=== PATIENT | female | born 1945 | race Caucasian/White ===

== ENCOUNTER 2021-02-02 16:02 | Outpatient (REF) | payer MEDICARE, SELFPAY ==
[2021-03-04 08:55] LABS: Fungus Smear No Fungi Seen
== END 2021-02-02 16:03 | disposition home or self-care (01) ==
LOC: NCHCN 16:02
PROVIDERS: PCP Nurse Practitioner Family; Visit Provider Nurse Practitioner Family
DX: S60.945D Unspecified superficial injury of left ring finger, subsequent encounter; L98.9 Disorder of the skin and subcutaneous tissue, unspecified
CPT/HCPCS: 87101; 87206

== ENCOUNTER 2021-08-18 11:44 | Outpatient (CLI) | payer MEDICARE, OTHER, SELFPAY ==
--- NOTE | 2021-08-18 10:30 | DI.RAD_ITS ---
Exam(s) XR FINGER LT RING EXAM: XR FINGER LT RING CLINICAL HISTORY: LEFT RING FINGER CYST TECHNIQUE: COMPARISON: No exams were available for comparison FINDINGS: Two views were obtained. There is severe loss of the cartilaginous joint spaces of the PIP and DIP P joints. There are very prominent marginal osteophytes at each of these sites. The findings are mor e severe at the PIP joint. No additional significant bony findings. Note is made soft tissue nodula r swelling over the dorsum the DIP joint IMPRESSION: RADIATION DOSE DELIVERED: Total DLP
== END 2021-08-18 11:45 | disposition home or self-care (01) ==
LOC: DIORS 11:44
PROVIDERS: PCP Nurse Practitioner Family; Referring Provider Family Medicine; Visit Provider Physician Assistant
DX: M67.442 Ganglion, left hand
CPT/HCPCS: 20610; 99202; 73140

== ENCOUNTER → 2021-11-16 08:51 | Outpatient (BNVA) | payer MEDICARE, OTHER, SELFPAY | PROVIDERS: PCP Nurse Practitioner Family; Referring Provider Nurse Practitioner Family; Visit Provider Student in an Organized Health Care Education/Training Program | DX: M67.442 Ganglion, left hand (principal) | CPT/HCPCS: 99212 ==

== ENCOUNTER 2021-12-14 02:41 | Outpatient (CLI) | payer MEDICARE, OTHER, SELFPAY ==
[2021-12-14 11:27] LABS: Source Nasal/Nares
[2021-12-14 16:14] LABS: COVID-19 PCR Negative (Negative)
== END 2021-12-14 02:42 | disposition home or self-care (01) ==
LOC: LBO 02:41
PROVIDERS: PCP Nurse Practitioner Family; Visit Provider Student in an Organized Health Care Education/Training Program
DX: Z20.822 Contact with and (suspected) exposure to COVID-19 (principal); Z01.818 Encounter for other preprocedural examination
CPT/HCPCS: 87635; U0005

== ENCOUNTER 2021-12-15 10:51 | Day surgery (SDC) | payer MEDICARE, OTHER, SELFPAY ==
[2021-12-15 11:10] VITALS: BP 157/95; PULSE 72; RESP 16; TEMP 36.5; O2SAT 97
[2021-12-15] MEDS: Sodium Bicarbonate 50 MEQ/50 ML VIAL (12:45)
[2021-12-15] MEDS: Lidocaine 1% Multi-Dose 50 ML VIAL (12:46)
[2021-12-15 12:55] VITALS: BP 170/92; PULSE 69; RESP 18; TEMP 36.5; O2SAT 99
--- NOTE | 2021-12-15 16:39 | W.PM.OP ---
Date of service: 12/15/21 Time of Service: 13:00 Operative Note Operative Note DATE OF PROCEDURE: 12/15/21 PRE-OP DIAGNOSIS: Left Ring Finger Mucous Cyst POST-OP DIAGNOSIS: same PROCEDURE: Mucous Cyst Excision - Left Ring Finger SURGEON: Goran Tamayo ANESTHESIA TYPE: Local By Surgeon Refer to Anesthesia Record ESTIMATED BLOOD LOSS: 5 PATHOLOGY: none sent COMPLICATIONS: None Patient was transported to: same day Patient's condition: stable Indications: I have seen Samreen in clinic for symptoms of a digital mucous cyst. The mass persisted and caused pain to direct contact and with use. The diagnosis of a mucous cyst was made. The symptoms had not responded to conservative measures. I discussed cyst excision with the patient. I reviewed the risks of the procedure to include, but not limited to, bleeding, infection, pain, stiffness, recurrence, damage to nerves or vessels. Despite these risks, the patient elected to proceed. Findings: There was a cyst of the distal phalanx, arising from the DIP joint. The cyst and its capsule was removed and an arthrotomy at the cyst location performed with removal of bony osteophyte prominence. Procedure Description: Samreen was greeted in the preoperative holding area where the correct side was identified and marked. The consent was reviewed with the patient and signed. All questions were answered. She was taken back to the operating room. The patient was placed into the supine position on the operating room table with the left arm on an arm board. All bony prominences were well padded. No prophylactic antibiotics were administered since this was a clean, elective hand surgical case. The left arm was then prepped with Chloraprep and draped in a standard fashion with stockinette and extremity drape. A timeout to confirm correct identity, side and site, procedure, allergies, anesthesia, and medical concerns was performed. A digital block was then performed using 2% lidocaine buffered with sodium bicarbonate. This was allowed time to set up completely and was tested before proceeding with the case. A longitudinal incision was then made overlying the cyst. The skin was incised sharply. Full-thickness flaps were then elevated to expose the cyst. Unfortunately, the skin was so thin that the cyst was penetrated on initial incision. The cyst capsule was then removed with a rongeur and followed back towards the DIP joint. Using the rongeur and a [place] I was able to penetrate into the DIP joint creating a small arthrotomy from the origin of the mucous cyst. The finger was irrigated and once again checked to make sure that all components of the cyst were removed. A small osteohpytic prominence was also removed with the rongeur. The skin was then closed using #4-0 nylon in interrupted fashion. The finger was dressed with Xeroform, 4 x 4, conformer dressing. The patient tolerated the procedure well and was returned to the Same Day Surgery area in a stable condition suffering no known complication.
== END 2021-12-15 13:45 | disposition home or self-care (01) ==
PROVIDERS: PCP Family Medicine; Visit Provider Student in an Organized Health Care Education/Training Program
PROC: (CPT 26160; principal; 2021-12-15 12:30)
DX: M67.442 Ganglion, left hand (principal)
CPT/HCPCS: 26160

== ENCOUNTER → 2021-12-25 10:42 | Outpatient (BNVA) | payer MEDICARE, OTHER, SELFPAY | PROVIDERS: PCP Family Medicine; Referring Provider Nurse Practitioner Family; Visit Provider Student in an Organized Health Care Education/Training Program | DX: Z47.89 Encounter for other orthopedic aftercare (principal) ==